=== PATIENT | male | born 1995 | race Caucasian/White ===

== ENCOUNTER 2019-01-17 00:08 | Emergency (ER) | payer OTHER ==
[~2019-01-17] VITALS: Ht 177.8 cm; Wt 61.0 kg
[2019-01-17 00:15] VITALS: BP 122/81
[2019-01-17] MEDS ORDERED: LIDOCAINE-MPF 1%, 5ML INFIL ONE (00:30)
--- NOTE | 2019-01-17 00:43 | NUR ---
first contact with pt. Pt c/o crush injury to R pointer finger. bleeding controled. pt denies any other complains at this time. pt's aox4. resps even and unlabored.
[2019-01-17] MEDS ORDERED: LIDOCAINE-MPF 1%, 2ML ONE (00:45)
--- NOTE | 2019-01-17 01:59 | NUR ---
pa applied sutures at this time. pt tolerated well. pt's aox4. resps even and unlabored.
[2019-01-17] MEDS ORDERED: BACITRACIN ZINC OINT 500U/GM, 0.9 GM ONE (02:03)
--- NOTE | 2019-01-17 02:05 | NUR ---
emt applied splint. pt tolerated well.
--- NOTE | 2019-01-17 02:15 | NUR ---
pt given dc instructions and script. pt educated regarding dc medication. pt amb to dc with steady gait. no acute distress at dc.
== END 2019-01-17 02:16 | disposition home or self-care (01) ==
LOC: ED 01:51
DX: S62.630B Displaced fracture of distal phalanx of right index finger, initial encounter for open fracture (principal); W31.89XA Contact with other specified machinery, initial encounter; Y93.89 Activity, other specified; Y92.69 Other specified industrial and construction area as the place of occurrence of the external cause; Y99.8 Other external cause status
CPT/HCPCS: 11760; 29130; 99284